=== PATIENT | male | born 1985 | race Caucasian/White ===

== ENCOUNTER 2018-06-26 18:35 | Emergency (ER) | payer SELFPAY ==
--- NOTE | 2018-06-26 19:41 | ER ---
Nurse's Notes [facility] Name: Frank Valderrama Age: 33 yrs Sex: Male : 1985 Arrival Date: 06/26/2018 Time: 18:47 Bed Waiting Private MD: None, None Diagnosis: ED Course: 06/26 18:47 Patient arrived in ED. sb2 18:47 None, None is Private Physician. sb2 18:48 Patient's name was called from ER lobby. No response. sv 19:14 Patient's name was called from ER lobby. No response. aj1 19:25 Patient's name was called from ER lobby. No response. Unable to locate patient. Will aj1 disposition as left without being seen by a provider. Administered Medications: No medications were administered Outcome: 19:40 Patient left the ED. aj1 Signatures: Dinorah Oreilly RN RN aj1 Angela Hinds RN RN sv Billeau, Sheri sb2
== END 2018-06-26 19:40 | disposition left against medical advice (07) ==
LOC: ER 18:35
DX: Z53.21 Procedure and treatment not carried out due to patient leaving prior to being seen by health care provider (principal)